=== PATIENT | female | born 1945 | race Asian ===

== ENCOUNTER 2017-03-04 13:09 | Emergency (ER) | payer OTHER, MEDICARE ==
[~2017-03-04] VITALS: Ht 160 cm; Wt 78.0 kg
[~2017-03-04 13:09] MED LIST: CARDIZEM LA180 MG PO; MULTI-VITAMIN1 EACH PO
[2017-03-04 15:54] VITALS: BP 179/97
== END 2017-03-04 15:56 | disposition home or self-care (01) ==
LOC: ER 13:09
DX: M25.561 Pain in right knee (principal)
CPT/HCPCS: 99282

== ENCOUNTER → 2017-03-06 | Outpatient (CLI) | payer OTHER, MEDICARE ==
--- NOTE | 2017-03-06 10:01 | Diagnostic Imaging Report ---
Right knee MRI without contrast. History: Knee pain. Sprain. Arthritis. Meniscus tear. Pain not responding to conservative management Comparison: None. Technique: Multiplanar multi-sequence MRI of the knee without contrast. Findings: Medial compartment: There is a complex tear involving the posterior horn and body segments of the medial meniscus with a radial component at the posterior root. Meniscal tissue is subluxed to the periphery. There is a nondisplaced subchondral microtrabecular fracture involving the medial tibial plateau best seen on sagittal series 3 image 20. There is extensive bone marrow edema and adjacent soft tissue edema. The medial collateral ligament complex is intact. Lateral compartment: There is mid substance degeneration of the lateral meniscus. No lateral meniscus tear is seen. The lateral compartmental articular cartilage surfaces are thinned with regions of fraying and fissuring. The lateral collateral ligament complex is intact. Intercondylar notch: There is a subacute/chronic appearing anterior cruciate ligament tear. The posterior cruciate ligament is intact. Patellofemoral compartment: There is articular cartilage fraying and fissuring in the patellofemoral compartment. Extensor mechanism: The quadriceps and patellar tendons are normal. Other findings: There is a joint effusion and synovitis. There is no subluxation or avascular necrosis. IMPRESSION: Complex displaced medial meniscus tear with nondisplaced subchondral microtrabecular fracture involving the medial tibial plateau. There is extensive bone marrow edema and adjacent soft tissue edema. The medial collateral complex is intact. Subacute/chronic appearing anterior cruciate ligament tear. Mild degenerative arthrosis in the patellofemoral and lateral compartments. Signed by: Dr. Crow Lee M.D. on 03/06/2017 9:57 AM
== END ==
LOC: MRI 08:15
PROVIDERS: ATTEND Specialist
DX: S83.221A Peripheral tear of medial meniscus, current injury, right knee, initial encounter (principal); S83.411A Sprain of medial collateral ligament of right knee, initial encounter; M17.11 Unilateral primary osteoarthritis, right knee

== ENCOUNTER 2017-10-06 17:00 | Inpatient (IN) | payer OTHER, MEDICARE ==
[~2017-10-06] VITALS: Ht 160 cm; Wt 75.9 kg
[2017-10-06] MEDS ORDERED: ADENOSINE 6MG/2ML 1 ML ONE (17:24)
[2017-10-06] MEDS ORDERED: ADENOSINE 6 MG/2 ML VIAL IV ONE (17:30)
[2017-10-06] MEDS ORDERED: ADENOSINE 6MG/2ML 2 ML ONE (17:30)
[2017-10-06] MEDS ORDERED: SODIUM CHLORIDE 0.9% 1000ML 1,000 ML IV ONE (17:30)
[2017-10-06] MEDS ORDERED: METOPROLOL TARTRATE INJ 1 MG/ML VIAL ONE ×2 (17:31→17:36)
[2017-10-06 17:39] LABS: BASOPHILS % 0.3 % (0.0-1.0); EOSINOPHILS # (AUTO) 0.1 (0.0-0.4); EOSINOPHILS % 0.9 % (0.0-6.0); HEMATOCRIT 45.5 % (34.2-44.1); HEMOGLOBIN 14.3 g/dL (12.0-16.0); LYMPHOCYTES # (AUTO) 3.9 (1.0-3.2); LYMPHOCYTES % 37.4 % (18.0-39.1); MEAN CORPUSCULAR HEMOGLOBIN 24.9 pg (28-32); MEAN CORPUSCULAR HGB CONC 31.4 g/dL (31-35); MEAN CORPUSCULAR VOLUME 79.3 fL (81-99); MONOCYTES # (AUTO) 0.8 (0.2-0.8); MONOCYTES % 7.6 % (4.4-11.3); NEUTROPHILS # (AUTO) 5.6 (2.1-6.9); NEUTROPHILS % 53.5 % (38.7-80.0); PLATELET COUNT 139 x10e3/uL (140-360); RED BLOOD COUNT 5.74 x10e6/uL (3.6-5.1); RED CELL DISTRIBUTION WIDTH 14.4 % (11.7-14.4)
[2017-10-06 17:41] LABS: INR 1.16; PARTIAL THROMBOPLASTIN TIME 27.6 seconds (23.8-35.5); PROTHROMBIN TIME 13.9 seconds (11.9-14.5)
[2017-10-06 18:10] LABS: ALBUMIN 3.2 g/dL (3.5-5.0); ALBUMIN/GLOBULIN RATIO 0.7 (0.8-2.0); ANION GAP 14.7 mmol/L (8-16); CREATININE, SERUM 1.31 mg/dL (0.57-1.11); MAGNESIUM 1.7 MG/DL (1.3-2.1); POTASSIUM 3.7 mmol/L (3.5-5.1)
--- NOTE | 2017-10-06 18:17 | Diagnostic Imaging Report ---
PROCEDURE: A single AP view of the chest. COMPARISON: Patients [facility], , CHEST SINGLE (PORTABLE), 12/01/2015, 15:38. INDICATIONS: ELEVATED HEART RATE FINDINGS: Lines/tubes: None. Lungs: The lungs are well inflated and grossly clear. There is no evidence of pneumonia or pulmonary edema. Pleura: There is no pleural effusion or pneumothorax. Heart and mediastinum: The heart and the mediastinum are unremarkable. Bones: No acute bony abnormality. IMPRESSION: 1. No acute cardiopulmonary abnormalities. Chris Carlton M.D. Dictated by: Chris Carlton M.D. on 10/06/2017 at 18:21 Electronically approved by: Chris Carlton M.D. on 10/06/2017 at 18:21
[2017-10-06 18:20] LABS: BILIRUBIN,URINE NEGATIVE (NEGATIVE); CLARITY,URINE SL CLOUDY (CLEAR); COLOR,URINE YELLOW (YELLOW); KETONES,URINE NEGATIVE (NEGATIVE); LEUKOCYTE ESTERASE ,URINE 2+ (NEGATIVE); NITRITE,URINE NEGATIVE (NEGATIVE); PROTEIN,URINE DIPSTICK TRACE (NEGATIVE); URINE UROBILINOGEN 0.2 mg/dL (0.2 - 1)
[2017-10-06 18:30] LABS: EPITHELIAL CELLS,URINE FEW /LPF; RENAL EPITHELIAL CELLS,URINE MODERATE; WBC,URINE (MAN) 21-50 /HPF (0-5)
[2017-10-06] MEDS ORDERED: SODIUM CHLORIDE FLUSH 10 ML SYR INJ PRN (18:30)
[2017-10-06] MEDS ORDERED: METOPROLOL TARTRATE INJ 1 MG/ML VIAL IV NR ×2 (18:30)
[2017-10-06] MEDS ORDERED: ADENOSINE 6 MG/2 ML VIAL IV NR (18:30)
[2017-10-06] MEDS ORDERED: METOPROLOL SUCCINATE 50 MG TAB XL PO NR (18:30)
[2017-10-06 18:31] LABS: CREATINE KINASE MB 0.9 ng/mL (0-5.0); THYROID STIMULATING HORMONE 1.614 uIU/mL (0.350-4.940)
[2017-10-06 18:34] LABS: PLATELET ESTIMATE ADEQUATE; PLATELET MORPHOLOGY COMMENT NORMAL; RBC MORPHOLOGY COMMENT NORMAL
[2017-10-06] MEDS ORDERED: DEXTROSE 50% SYRINGE 50 ML IV PRN (18:45)
[2017-10-06] MEDS: METOPROLOL SUCCINATE 50 MG TAB XL PO SCH (18:53)
[2017-10-06] MEDS: CIPROFLOXACIN 500 MG TAB PO SCH (18:54)
[2017-10-06 20:00] VITALS: BP 181/84
[2017-10-06] MEDS: INSULIN REGULAR, HUMAN 100 UNIT/1 ML 3ML VIAL SQ SCH (21:00)
[2017-10-07] VITALS (7 sets, daily range): BP systolic 131–179; BP diastolic 64–82
[2017-10-07 06:12] LABS: CHOL/HDL RATIO 3.4 (3.0-3.6)
[2017-10-07] MEDS: ASPIRIN 81 MG ENTERIC COATED PO SCH (08:32)
[2017-10-07] MEDS: CIPROFLOXACIN 500 MG TAB PO SCH (08:32)
[2017-10-07] MEDS: INSULIN REGULAR, HUMAN 100 UNIT/1 ML 3ML VIAL SQ SCH ×4 (08:32→22:15)
[2017-10-07] MEDS: METOPROLOL SUCCINATE 50 MG TAB XL PO SCH (08:32)
[2017-10-07] MEDS ORDERED: CIPROFLOXACIN 500 MG TAB PO SCH (09:00)
[2017-10-07] MEDS ORDERED: METOPROLOL SUCCINATE 50 MG TAB XL PO SCH (09:00)
[2017-10-07] MEDS ORDERED: CEFTRIAXONE SOD 1 GM VIAL IV SCH ×2 (09:30→12:00)
[2017-10-07] MEDS ORDERED: ACETAMINOPHEN 325 MG TAB PO PRN (09:45)
[2017-10-07] MEDS ORDERED: HYDRALAZINE HCL 20 MG/ML VIAL IV PRN (09:45)
[2017-10-07] MEDS ORDERED: ONDANSETRON HCL INJ 2 MG/ML VIAL IV PRN (09:45)
[2017-10-07] MEDS ORDERED: SODIUM CHLORIDE 0.9% 1000ML 1,000 ML IV ONE (09:45)
[2017-10-07] MEDS: AMLODIPINE BESYLATE 10 MG TAB PO SCH (10:23)
--- NOTE | 2017-10-07 16:15 | Consultation ---
DATE OF CONSULTATION: October 07, 2017 CARDIOLOGY CONSULTATION REASON FOR CONSULTATION: SVT. HPI: This is a pleasant 72-year-old female that presented with palpitations. According to the patient, she started feeling rapid heart rate, chest discomfort and dizziness that she decided to come into the emergency room for evaluation. In the ER, she was found to be in SVT with heart rate in the 150s. She was given adenosine times 1 and she converted to normal sinus rhythm. She denies any diaphoresis, any headache or shortness of breath. She had a recent episode in 2016. She received some Cardizem and she converted back to normal sinus rhythm also. PAST MEDICAL HISTORY: None. MEDICATIONS: She is not on any medications also. She does not follow up with any doctor. FAMILY HISTORY: Noncontributory. SOCIAL HISTORY: No smoking. No drinking. She lives at home with her . She takes caffeine regularly. MEDICATIONS: She is on vitamins. ALLERGIES: SHE IS ALLERGIC TO SULFA. REVIEW OF SYSTEMS: Negative except those mentioned above. PHYSICAL EXAMINATION VITAL SIGNS: Temperature 97, heart rate 63, blood pressure 131/71, respirations 19, oxygen saturation 97% on room air. GENERAL: She is awake, alert and oriented times 3. HEENT: Mucous membrane moist. NECK: Supple. LUNGS: Bilateral clear to auscultation. CARDIOVASCULAR: S1 and S2 present. ABDOMEN: Soft. NEUROLOGICAL: Intact. EXTREMITIES: No edema. LABS: Sodium 140, potassium 3.7, chloride 107, CO2 22, BUN 19, creatinine 1.31, glucose 225. White blood cell 10.4, hemoglobin 14.3, hematocrit 45.5, platelets 139,000. PT 13.9, PTT 27.6 and INR 1.16. IMPRESSION 1. Paroxysmal supraventricular tachycardia. 2. Obesity. 3. Renal insufficiency. 4. Possible diabetes. 5. Possible urinary tract infection. ASSESSMENT AND PLAN: She is pending an echocardiogram to assess the LV and the valve function. Heart rate converted back to normal sinus rhythm after adenosine. She complained of dizziness and syncopal episode. Will go ahead and get bilateral carotid Doppler to rule out any occlusion. Her blood sugar was high with hemoglobin A1c 6.9. She was started on insulin. Will continue beta juana. She is on antibiotics for UTI also. Will check her TSH. She has been counseled on caffeine cessation. Further cardiac workup pending clinical course. Thank you for this consultation. DICTATED BY ROMULO PENA NP Job#: [id number] RI
[2017-10-07] MEDS: FAMOTIDINE 20 MG TAB PO SCH (17:21)
[2017-10-08] VITALS: BP 114/58
[2017-10-08 04:00] VITALS: BP 128/68
[2017-10-08 04:12] LABS: BASOPHILS % 0.2 % (0.0-1.0); EOSINOPHILS # (AUTO) 0.1 (0.0-0.4); HEMATOCRIT 41.1 % (34.2-44.1); HEMOGLOBIN 12.7 g/dL (12.0-16.0); LYMPHOCYTES # (AUTO) 3.8 (1.0-3.2); LYMPHOCYTES % 39.2 % (18.0-39.1); MEAN CORPUSCULAR HEMOGLOBIN 24.9 pg (28-32); MEAN CORPUSCULAR HGB CONC 30.9 g/dL (31-35); MEAN CORPUSCULAR VOLUME 80.4 fL (81-99); MONOCYTES # (AUTO) 0.7 (0.2-0.8); MONOCYTES % 7.1 % (4.4-11.3); NEUTROPHILS # (AUTO) 5.1 (2.1-6.9); NEUTROPHILS % 52.4 % (38.7-80.0); PLATELET COUNT 120 x10e3/uL (140-360); RED BLOOD COUNT 5.11 x10e6/uL (3.6-5.1); RED CELL DISTRIBUTION WIDTH 14.3 % (11.7-14.4)
[2017-10-08 04:24] LABS: ANION GAP 11.9 mmol/L (8-16); CREATININE, SERUM 1.01 mg/dL (0.57-1.11); MAGNESIUM 1.8 MG/DL (1.3-2.1); POTASSIUM 3.9 mmol/L (3.5-5.1)
[2017-10-08] MEDS ORDERED: CEFTIN PO (06:21)
[2017-10-08] MEDS ORDERED: NORVASC10 MG PO (06:21)
[2017-10-08] MEDS ORDERED: TOPROL XL50 MG PO (06:21)
[2017-10-08] MEDS: METOPROLOL SUCCINATE 50 MG TAB XL PO SCH (08:09)
[2017-10-08] MEDS: INSULIN REGULAR, HUMAN 100 UNIT/1 ML 3ML VIAL SQ SCH (08:09)
[2017-10-08] MEDS: FAMOTIDINE 20 MG TAB PO SCH (08:09)
[2017-10-08] MEDS: ASPIRIN 81 MG ENTERIC COATED PO SCH (08:09)
[2017-10-08] MEDS: AMLODIPINE BESYLATE 10 MG TAB PO SCH (08:09)
[2017-10-08 08:28] VITALS: BP 126/75
--- NOTE | 2017-10-08 15:32 | Discharge Summary ---
ADMISSION DIAGNOSES 1. Paroxysmal supraventricular tachycardia. 2. Urinary tract infection. 3. Acute kidney injury. 4. Hypertension without hypertension history. 5. Bradycardia. DISCHARGE DIAGNOSES 1. Paroxysmal supraventricular tachycardia. 2. Urinary tract infection. 3. Acute kidney injury. 4. Hypertension without hypertension history. 5. Bradycardia. HISTORY: Patient has no medical history and no surgical history. HOSPITAL COURSE: A 72-year-old female complained of palpitations, dizziness and vomiting that began around 3 p.m. on the day of admission. She admitted to drinking tea normally but had a cappuccino the morning of admission. She denied drug use, sweating, chest pain, syncope. She was making lunch when it occurred. She came to the ER when the symptoms did not resolve after 30 minutes. On admission an EKG was done that showed SVT with a rate of 208. Patient was given adenosine in the ER and she converted to normal sinus rhythm. Urine culture was done that showed blood and leukocytes as well as WBC. Patient was started on Rocephin. Echo showed an EF of 55% to 60%. Chest x-ray showed no acute abnormality. Bilateral carotid Doppler negative as well. Started on beta juana per cardiology. TSH and free T4 within normal limits. Per cardiology, patient can discharge home on beta juana. She will also discharge home with Norvasc and Ceftin for the UTI. She will follow up with cardiology in one to two weeks as well as primary care in one to two weeks. Patient and agreed to discharge plan and followups and are ready to go home. Dictated by: Nicole Sandoval NP. CLAUDE NORMAN MD Job#: [id number] DG
[2017-10-08] MEDS ORDERED: ENOXAPARIN SOD INJ 40 MG/0.4 ML SYR SC SCH (17:00)
== END 2017-10-08 08:49 | disposition home or self-care (01) | DRG 309 ==
LOC: ER 17:00 → ERHOLD 18:57 → MED/SURG 20:40
PROVIDERS: ADMIT Internal Medicine; ATTEND Internal Medicine
DX: I48.0 Paroxysmal atrial fibrillation (principal); N39.0 Urinary tract infection, site not specified; N17.9 Acute kidney failure, unspecified; I10 Essential (primary) hypertension; I47.1 Supraventricular tachycardia; E66.9 Obesity, unspecified; Z68.29 Body mass index [BMI] 29.0-29.9, adult; E86.0 Dehydration; E11.9 Type 2 diabetes mellitus without complications; Z79.4 Long term (current) use of insulin
CPT/HCPCS: 36415; 71045; 80048; 80053; 80061; 81001; 82550; 82553; 82948; 83036; 83735; 83880; 84100; 84443; 84479; 84484; 85025; 85610; 85730; 87086; 93005; 93306; 93880; 97139; 99284; J0153; J0696; J7030

== ENCOUNTER 2017-10-15 22:01 | Emergency (ER) | payer OTHER, MEDICARE ==
[~2017-10-15] VITALS: Ht 160 cm; Wt 75.7 kg
[~2017-10-15 22:01] MED LIST changes: +CEFTIN PO; +NORVASC10 MG PO; +TOPROL XL50 MG PO
[2017-10-15] MEDS ORDERED: METOPROLOL TARTRATE 25 MG TAB PO ONE (22:30)
[2017-10-15 23:30] VITALS: BP 151/80
== END 2017-10-15 23:33 | disposition home or self-care (01) ==
LOC: ER 22:01
DX: R00.2 Palpitations (principal); K21.9 Gastro-esophageal reflux disease without esophagitis
CPT/HCPCS: 93005; 99282

== ENCOUNTER 2017-11-11 13:44 | Emergency (ER) | payer OTHER, MEDICARE ==
[~2017-11-11] VITALS: Ht 160 cm; Wt 75.7 kg
[2017-11-11] MEDS ORDERED: LABETALOL HCL 5 MG/ML 20ML VIAL IV STA ×2 (14:12→15:32)
[2017-11-11 14:37] LABS: BASOPHILS % 0.1 % (0.0-1.0); EOSINOPHILS # (AUTO) 0.1 (0.0-0.4); EOSINOPHILS % 0.6 % (0.0-6.0); HEMATOCRIT 42.9 % (34.2-44.1); HEMOGLOBIN 13.3 g/dL (12.0-16.0); LYMPHOCYTES # (AUTO) 2.1 (1.0-3.2); LYMPHOCYTES % 26.8 % (18.0-39.1); MEAN CORPUSCULAR VOLUME 80.6 fL (81-99); MONOCYTES # (AUTO) 0.5 (0.2-0.8); NEUTROPHILS # (AUTO) 5.3 (2.1-6.9); PLATELET COUNT 114 x10e3/uL (140-360); RED BLOOD COUNT 5.32 x10e6/uL (3.6-5.1); RED CELL DISTRIBUTION WIDTH 14.6 % (11.7-14.4)
--- NOTE | 2017-11-11 14:50 | Diagnostic Imaging Report ---
PROCEDURE: A single AP view of the chest. COMPARISON: Chest radiograph 10/06/17. INDICATIONS: FAST HEART RATE FINDINGS: Lines/tubes: None. Lungs: The lungs are well inflated and clear. There is no evidence of pneumonia or pulmonary edema. Pleura: There is no pleural effusion or pneumothorax. Heart and mediastinum: The cardiomediastinal silhouette is unremarkable. Bones: No acute bony abnormality. IMPRESSION: No acute intrathoracic abnormality. Dictated by: RADHA GONZALES M.D. on 11/11/2017 at 14:56 Electronically approved by: RADHA GONZALES M.D. on 11/11/2017 at 14:56
[2017-11-11 14:55] LABS: INR 1.16; PARTIAL THROMBOPLASTIN TIME 27.8 seconds (23.8-35.5); PROTHROMBIN TIME 13.9 seconds (11.9-14.5)
[2017-11-11 14:57] LABS: ALANINE AMINOTRANSFERASE 12 IU/L (0-55); ALBUMIN 3.7 g/dL (3.5-5.0); ALBUMIN/GLOBULIN RATIO 0.6 (0.8-2.0); ALKALINE PHOSPHATASE 72 IU/L (40-150); ANION GAP 16.2 mmol/L (8-16); BLOOD UREA NITROGEN 14 mg/dL (7-26); BUN/CREATININE RATIO 14 (6-25); CALCIUM 9.7 mg/dL (8.4-10.2); CARBON DIOXIDE 22 mmol/L (22-29); CHLORIDE 106 mmol/L (98-107); CREATINE KINASE 82 IU/L (29-168); CREATININE, SERUM 1.02 mg/dL (0.57-1.11); EST GLOMERULAR FILTRATION RATE 53 ML/MIN (60-); GLUCOSE 246 mg/dL (74-118); MAGNESIUM 2.4 MG/DL (1.3-2.1); SODIUM 140 mmol/L (136-145)
[2017-11-11 15:02] LABS: POTASSIUM 4.2 mmol/L (3.5-5.1)
[2017-11-11] MEDS ORDERED: METOPROLOL TART50 MG PO (17:11)
== END 2017-11-11 17:49 | disposition home or self-care (01) ==
LOC: ER 13:44
DX: R00.2 Palpitations (principal); R00.0 Tachycardia, unspecified
CPT/HCPCS: 36415; 71045; 80053; 82550; 82553; 83735; 83880; 84443; 84484; 85025; 85610; 85730; 93005; 99284; J3490

== ENCOUNTER 2018-04-07 20:06 | Emergency (ER) | payer MEDICARE, OTHER ==
[~2018-04-07] VITALS: Ht 160 cm; Wt 75.7 kg
[~2018-04-07 20:06] MED LIST changes: +METOPROLOL TART50 MG PO
[2018-04-07] MEDS ORDERED: LORAZEPAM INJ 2 MG/ML VIAL IV ONE (20:30)
[2018-04-07] MEDS ORDERED: METOPROLOL TARTRATE INJ 1 MG/ML VIAL IV ONE (20:30)
--- NOTE | 2018-04-07 21:10 | NUR ---
X-RAY AT BEDSIDE FOR CXR.
--- NOTE | 2018-04-07 21:15 | NUR ---
MEDS THAT WERE ORDERED WERE NOT ADMINISTERED, PT B/P HAS DECREASED FROM 228/109 AT TRIAGE- CURRENTLY 156/90. PT REPORTS TO HAVE TAKEN HOME MEDICATION FOR BLOOD PRESSURE (METOPROLOL) LOBSTER CATCHER AT 1900. NOT ANXIOUS AT THIS TIME.
[2018-04-07 21:20] LABS: BASOPHILS % 0.4 % (0.0-1.0); EOSINOPHILS # (AUTO) 0.1 (0.0-0.4); EOSINOPHILS % 1.3 % (0.0-6.0); HEMATOCRIT 48.9 % (34.2-44.1); HEMOGLOBIN 14.9 g/dL (12.0-16.0); LYMPHOCYTES # (AUTO) 2.6 (1.0-3.2); LYMPHOCYTES % 34.1 % (18.0-39.1); MEAN CORPUSCULAR HEMOGLOBIN 24.5 pg (28-32); MEAN CORPUSCULAR HGB CONC 30.5 g/dL (31-35); MEAN CORPUSCULAR VOLUME 80.6 fL (81-99); MONOCYTES # (AUTO) 0.5 (0.2-0.8); MONOCYTES % 6.1 % (4.4-11.3); NEUTROPHILS # (AUTO) 4.4 (2.1-6.9); NEUTROPHILS % 57.7 % (38.7-80.0); PLATELET COUNT 131 x10e3/uL (140-360); RED BLOOD COUNT 6.07 x10e6/uL (3.6-5.1)
[2018-04-07 21:34] LABS: ALANINE AMINOTRANSFERASE 9 IU/L (0-55); ALBUMIN/GLOBULIN RATIO 0.8 (0.8-2.0); ALKALINE PHOSPHATASE 82 IU/L (40-150); ANION GAP 15.6 mmol/L (8-16); BLOOD UREA NITROGEN 16 mg/dL (7-26); BUN/CREATININE RATIO 15 (6-25); CALCIUM 9.8 mg/dL (8.4-10.2); CARBON DIOXIDE 24 mmol/L (22-29); CHLORIDE 98 mmol/L (98-107); CREATINE KINASE 83 IU/L (29-168); CREATININE, SERUM 1.07 mg/dL (0.57-1.11); EST GLOMERULAR FILTRATION RATE 50 ML/MIN (60-); GLUCOSE 222 mg/dL (74-118); POTASSIUM 3.6 mmol/L (3.5-5.1); SODIUM 134 mmol/L (136-145)
--- NOTE | 2018-04-07 21:47 | Diagnostic Imaging Report ---
EXAMINATION: CHEST SINGLE (PORTABLE) INDICATION: sob COMPARISON: 11/11/2017 FINDINGS: AP view TUBES and LINES: None. LUNGS: Lungs are well inflated. Left basilar atelectasis or scarring. There is no evidence of pneumonia or pulmonary edema. PLEURA: No pleural effusion or pneumothorax. HEART AND MEDIASTINUM: The cardiomediastinal silhouette is unremarkable. BONES AND SOFT TISSUES: No acute osseous lesion. Soft tissues are unremarkable. UPPER ABDOMEN: No free air under the diaphragm. IMPRESSION: No acute thoracic abnormality. Signed by: DR. Glenn Altamirano MD on 04/07/2018 9:44 PM
[2018-04-07 21:56] LABS: BILIRUBIN,URINE NEGATIVE (NEGATIVE); CLARITY,URINE CLOUDY (CLEAR); COLOR,URINE YELLOW (YELLOW); KETONES,URINE NEGATIVE (NEGATIVE); LEUKOCYTE ESTERASE ,URINE TRACE (NEGATIVE); NITRITE,URINE NEGATIVE (NEGATIVE); PROTEIN,URINE DIPSTICK NEGATIVE (NEGATIVE); URINE UROBILINOGEN 0.2 mg/dL (0.2 - 1)
[2018-04-07 21:57] LABS: BACTERIA,URINE MODERATE /HPF; EPITHELIAL CELLS,URINE FEW /LPF; RBC,URINE 0-5 /HPF (0-5)
[2018-04-07 22:28] VITALS: BP 153/86
== END 2018-04-07 23:05 | disposition home or self-care (01) ==
LOC: ER 20:06
DX: R00.2 Palpitations (principal); R06.00 Dyspnea, unspecified; N30.90 Cystitis, unspecified without hematuria; I10 Essential (primary) hypertension
CPT/HCPCS: 36415; 71045; 80053; 81001; 82550; 82553; 83880; 84436; 84443; 84479; 84484; 85025; 85379; 93005; 99284

== ENCOUNTER 2021-01-14 07:09 | Emergency (ER) | payer MEDICARE, BC ==
[~2021-01-14] VITALS: Ht 160 cm; Wt 75.7 kg
[2021-01-14] MEDS ORDERED: SODIUM CHLORIDE 0.9% 500ML 500 ML IV ONE (07:30)
[2021-01-14 07:55] LABS: ALBUMIN 3.8 g/dL (3.5-5.0); ALBUMIN/GLOBULIN RATIO 0.7 (0.8-2.0); ANION GAP 15.9 mmol/L (8-16); CALCIUM 9.2 mg/dL (8.4-10.2); CREATININE, SERUM 1.1 mg/dL (0.57-1.11); MAGNESIUM 1.9 MG/DL (1.3-2.1); POTASSIUM 3.9 mmol/L (3.5-5.1)
[2021-01-14 07:56] LABS: HEMOGLOBIN 14.8 g/dL (12.0-16.0); MEAN CORPUSCULAR HEMOGLOBIN 25.3 pg (28-32); MEAN CORPUSCULAR HGB CONC 31.5 g/dL (31-35); MEAN CORPUSCULAR VOLUME 80.5 fL (81-99); RED BLOOD COUNT 5.84 x10e6/uL (3.6-5.1); RED CELL DISTRIBUTION WIDTH 12.7 % (11.7-14.4)
[2021-01-14 07:57] LABS: PLATELET COUNT 115 x10e3/uL (140-360)
[2021-01-14 07:58] LABS: LYMPHOCYTES % 32.4 % (18.0-39.1); NEUTROPHILS % 59.5 % (38.7-80.0)
[2021-01-14] MEDS ORDERED: ACETAMINOPHEN 325 MG TAB PO ONE (08:00)
[2021-01-14] MEDS ORDERED: VOLTAREN ARTHRI20 GM TOP (10:45)
[2021-01-14 11:51] VITALS: BP 154/90
== END 2021-01-14 11:40 | disposition home or self-care (01) ==
LOC: ER 07:15
DX: R00.0 Tachycardia, unspecified (principal); M25.561 Pain in right knee; M79.604 Pain in right leg; I10 Essential (primary) hypertension; R94.31 Abnormal electrocardiogram [ECG] [EKG]
CPT/HCPCS: 36415; 71045; 73562; 80053; 83735; 84484; 85025; 93005; 93971; 99284; J7040